=== PATIENT | female | born 1940 | race Two or more races ===

== ENCOUNTER 2017-07-26 13:27 | Emergency (ER) | payer MEDICARE, MEDICAID ==
[~2017-07-26] VITALS: Ht 149.9 cm; Wt 66.0 kg
[2017-07-26] MEDS ORDERED: ACETAMINOPHEN 325MG TABLET PO ONE (21:15)
[2017-07-26 21:57] VITALS: BP 155/44
== END 2017-07-26 22:04 | disposition home or self-care (01) ==
LOC: ER 13:44
DX: S83.8X1A Sprain of other specified parts of right knee, initial encounter (principal); X50.1XXA Overexertion from prolonged static or awkward postures, initial encounter; Y93.89 Activity, other specified; Y92.018 Other place in single-family (private) house as the place of occurrence of the external cause
CPT/HCPCS: 73562; 99284